=== PATIENT | female | born 1965 | race African-American/Black ===

== ENCOUNTER → 2017-02-10 | Outpatient (CLI) | payer OTHER ==
[2016-03-30 13:59] VITALS: BP_DIAS 99
[~2017-02-10] MED LIST: HYDR12.53 PO; IOHEXOL 300 MG/ML 100ML VIAL. IV ONE
--- NOTE | 2017-02-10 09:38 | KCIC ---
CT CHEST Indication: Pulmonary nodule Comparison: CT chest from February 25, 2016 Technique: Multiple contiguous axial images were obtained through the chest after administration of iodinated contrast. Coronal and sagittal reformations were created. Findings: There is been enlargement of the lingular pulmonary nodule which now measures 2.3 x 2.3 x 2.2 cm compared with 2.2 x 2.2 x 2.0 cm on the prior exam. The heart size is normal. Thoracic aorta is normal in caliber. There is some prevascular soft tissue fullness which is unchanged. No mediastinal or hilar adenopathy. Limited subdiaphragmatic evaluation demonstrates cholelithiasis. IMPRESSION: There has been a mild increase in size of the lingular pulmonary nodule when compared to the previous exam from February 25, 2016. Cholelithiasis. There is no mediastinal adenopathy but there is some prevascular soft tissue fullness which could represent residual thymus tissue. This is unchanged. Electronically signed by: Cory German MD (02/10/2017 9:34 AM)
== END | disposition home or self-care (01) ==
LOC: KCIC CT 08:30
PROVIDERS: ATTEND Family Medicine
DX: R91.1 Solitary pulmonary nodule (principal); K80.20 Calculus of gallbladder without cholecystitis without obstruction; M79.89 Other specified soft tissue disorders
CPT/HCPCS: 71270; Q9967